=== PATIENT | male | born 1960 | race Caucasian/White ===

== ENCOUNTER 2018-10-23 13:05 | Day surgery (SDC) | payer SELFPAY ==
[~2018-10-23] VITALS: Ht 172.7 cm; Wt 75.6 kg
[2018-10-23] VITALS (17 sets, daily range): BP systolic 103–136; BP diastolic 61–87; PULSE 14–67; TEMP 97.3–97.7
[2018-10-23] MEDS ORDERED: PRINZIDE 12.5 M1 TA1 PO (13:59)
[2018-10-23] MEDS ORDERED: GLUCOPHAGE500 MG/TAB PO (13:59)
[2018-10-23] MEDS ORDERED: ULTRAM 50MG TAB50 MG PO (14:00)
[2018-10-23] MEDS ORDERED: CIPRO 500MG TA500 MG PO (14:00)
[2018-10-23] MEDS ORDERED: ZOFRAN 4MG T4 MG/TAB PO (14:01)
[2018-10-23] MEDS ORDERED: ASPIRIN 32325 MG/TAB PO (14:02)
--- NOTE | 2018-10-23 14:09 | NUR ---
TO RM AT 1325- CALL LIGHT IN REACH
--- NOTE | 2018-10-23 14:09 | NUR ---
PATIENT PARENTS ARE IN WAITING RM.
--- NOTE | 2018-10-23 14:55 | NUR ---
TO BAY [address] [facility]. AMBULATED TO RECLINER WITH ASSIST AND TOLERATED WELL. AWAKE AND TALKING TO FAMILY AND STAFF. NO CHANGES, DENIES PAIN.
--- NOTE | 2018-10-23 15:10 | NUR ---
RESTING QUIETLY AND TALKING TO PARENTS.
--- NOTE | 2018-10-23 15:20 | NUR ---
DR DENTON INTO TALK WITH PATIENT AND FAMILY.
[2018-10-23] MEDS ORDERED: PRILOSEC 20MG20 MG PO (15:23)
--- NOTE | 2018-10-23 15:25 | NUR ---
RECEIVED APPLE JUICE AND JELLO.
--- NOTE | 2018-10-23 15:30 | NUR ---
RECEIVED 2 NEW WARM BLANKETS FOR COMFORT.
--- NOTE | 2018-10-23 15:57 | NUR ---
REPORT CALLED TO ROBERTA VILCHIS RN PATIENT WILL BE TRANSFERED TO RM 350 TO STAY TILL 1845.
--- NOTE | 2018-10-23 16:10 | NUR ---
PATIENT ARRIVED TO ROOM 350. PATIENT SETTELED INTO ROOM. POST-OP VSS. CALL LIGHT WITHIN REACH. PATIENT DENIES ANY NEEDS AT THIS TIME.
--- NOTE | 2018-10-23 18:00 | NUR ---
PATIENT IS TOLERATING A CLEAR LIQUID DIET WITHOUT ANY COMPLAINTS OF N/V OR PAIN. POST-OP VSS. CALL LIGHT WITHIN REACH. PATIENT DENIES ANY OTHER NEEDS AT THIS TIME. WILL CONTINUE TO MONITOR.
--- NOTE | 2018-10-23 19:15 | NUR ---
Pt. hold time complete. Pt. given discharge instructions. Pt. voices understanding. Pt. denies questions. INT discontinued from rt. forearm . Pt. getting dressed will call when ready to be escorted out.
--- NOTE | 2018-10-23 19:35 | NUR ---
Pt. escorted out by JAYLON Echols
== END 2018-10-23 19:36 | disposition home or self-care (01) ==
LOC: SDCO 13:05 → SURG 16:10 → SDCO 19:36
DX: K80.50 Calculus of bile duct without cholangitis or cholecystitis without obstruction (principal); K25.9 Gastric ulcer, unspecified as acute or chronic, without hemorrhage or perforation; K26.9 Duodenal ulcer, unspecified as acute or chronic, without hemorrhage or perforation; Z79.899 Other long term (current) drug therapy; I10 Essential (primary) hypertension; F17.220 Nicotine dependence, chewing tobacco, uncomplicated; E11.9 Type 2 diabetes mellitus without complications; Z79.84 Long term (current) use of oral hypoglycemic drugs; K85.90 Acute pancreatitis without necrosis or infection, unspecified
CPT/HCPCS: OP; C1769; J2704; J7030; Q9967

== ENCOUNTER 2020-02-15 08:55 | Day surgery (SDC) | payer MEDICARE, MEDICAID ==
[2020-02-15] VITALS (98 sets, daily range): BP systolic 115–140; BP diastolic 71–103; PULSE 54–72; TEMP 98.1; O2SAT 91–98
[~2020-02-15] VITALS: Ht 172.8 cm; Wt 98.2 kg
[~2020-02-15 08:55] MED LIST: ASPIRIN 32325 MG/TAB PO; CIPRO 500MG TA500 MG PO; GLUCOPHAGE500 MG/TAB PO; PRILOSEC 20MG20 MG PO; PRINZIDE 12.5 M1 TA1 PO; ULTRAM 50MG TAB50 MG PO; ZOFRAN 4MG T4 MG/TAB PO
[2020-02-15 09:48] LABS: HEMATOCRIT 44.6 % (42.0-52.0); HEMOGLOBIN 14.9 g/dl (13.5-18.0); MEAN CELL VOLUME 87 fl (80.0-100.0); MEAN CORPUSCULAR HEMOGLOBIN 29 pg (27.0-31.0); MEAN CORPUSCULAR HGB CONC 33 g/dl (33.0-37.0); MEAN PLATELET VOLUME 11.7 fl (7.4-10.4); PLATELET COUNT 309 K/mm3 (130-400); RED BLOOD COUNT 5.14 M/mm3 (4.20-5.60); REDCELL DISTRIBUTION WIDTH-CV 14.9 % (11.5-14.5)
[2020-02-15 09:59] LABS: INR 0.9 (0.8-3.0); PROTHROMBIN TIME 10.4 SECONDS (9.7-12.8)
[2020-02-15 10:01] LABS: PARTIAL THROMBOPLASTIN TIME 35.6 SECONDS (26.0-37.0)
[2020-02-15 10:02] LABS: ALBUMIN 4.1 gm/dL (3.5-5.0); CALCIUM 9.1 mg/dL (8.4-10.2); CREATININE, serum 0.67 (0.66-1.25); MAGNESIUM 1.9 mg/dL (1.6-2.3); POTASSIUM 3.8 mmol/L (3.4-5.0); TOTAL PROTEIN 7.2 gm/dL (6.4-8.2)
[2020-02-15] MEDS ORDERED: PRINZIDE 12.5 M1 TAB PO (10:30)
[2020-02-15] MEDS ORDERED: CYMBALTA 60MG60 MG PO (10:31)
[2020-02-15] MEDS ORDERED: FLOMAX 0.40.4 MG/CAP PO (10:31)
[2020-02-15] MEDS ORDERED: TOPROL XL 50MG50 MG PO (10:32)
[2020-02-15] MEDS ORDERED: GLUCOPHAGE XR500 M1 PO (10:33)
[2020-02-15] MEDS ORDERED: ELIQUIS 5MG PO (10:33)
--- NOTE | 2020-02-15 12:09 | NUR ---
SEE MERGE DOCUMENTATION FOR MEDICATION ADMINISTRATION TIMES AND INTRA/POST PROCEDURE SEDATION ASSESSMENTS. RIGHT HAND BARBEAU TEST SLIGHTLY SLUGGISH, BUT POSITIVE. WILL NOTIFY MD OF THIS.
[2020-02-15] MEDS ORDERED: LIPITOR 40MG TA40 MG PO (12:49)
[2020-02-15] MEDS ORDERED: CEPHALEXIN500 M1 PO (14:03)
--- NOTE | 2020-02-15 14:20 | NUR ---
Pt c/o throbbing pain to rt thumb with numb sensation. TR band loosened by 1ml and pt expressed relief.
--- NOTE | 2020-02-15 16:03 | NUR ---
Air from TR and removed in 2 ml increments with no bleeding from radial puncture site. TR band removed and site dressed with 2x2, bandaid. Arm board sent with pt. IV DC'd with catheter intact, and bleeding controlled at site. Pt ambulatory in room without issue. He will be assisted to father's car by wheelchair once he is dressed. DC instructions and loop recorder equipment will be sent with pt.
== END 2020-02-15 16:15 | disposition home or self-care (01) ==
LOC: COL.CAR 08:55
PROVIDERS: Internal Medicine Cardiovascular Disease
DX: I48.0 Paroxysmal atrial fibrillation (principal); R55 Syncope and collapse; Z20.828 Contact with and (suspected) exposure to other viral communicable diseases; R94.39 Abnormal result of other cardiovascular function study; I20.0 Unstable angina; F17.220 Nicotine dependence, chewing tobacco, uncomplicated; I10 Essential (primary) hypertension; E11.9 Type 2 diabetes mellitus without complications; M19.90 Unspecified osteoarthritis, unspecified site
CPT/HCPCS: J1644; J2250; J3010; Q9967

== ENCOUNTER → 2020-08-03 | Outpatient (CLI) | payer MEDICARE ==
[~2020-08-03] MED LIST changes: +CEPHALEXIN500 M1 PO; +CYMBALTA 60MG60 MG PO; +ELIQUIS 5MG PO; +FLOMAX 0.40.4 MG/CAP PO; +GLUCOPHAGE XR500 M1 PO; +LIPITOR 40MG TA40 MG PO; +PRIL40 PO; -PRILOSEC 20MG20 MG PO; +PRINZIDE 12.5 M1 TAB PO; +TOPROL XL 50MG50 MG PO
== END ==
LOC: MHCPAIN 10:37
DX: M47.812 Spondylosis without myelopathy or radiculopathy, cervical region (principal); M54.2 Cervicalgia; M54.5 Low back pain; R51.9 Headache, unspecified; G89.29 Other chronic pain
CPT/HCPCS: G0463

== ENCOUNTER → 2020-09-21 | Outpatient (CLI) | payer MEDICARE ==
--- NOTE | 2020-09-21 09:25 | NUR ---
Patients pacemaker was set by [employer] rep and was monitered by the nurse. After the scan was done the packmaker was put back to its orignal settings/
== END ==
LOC: COL.RAD 07:46
DX: I67.89 Other cerebrovascular disease (principal); R25.1 Tremor, unspecified